=== PATIENT | female | born 1945 | race Caucasian/White ===

== ENCOUNTER 2020-07-02 09:16 | Outpatient (REF) | payer MEDICARE, SELFPAY ==
[2020-07-02 11:02] LABS: MANUAL DIFF FLAG NO
[2020-07-02 11:19] LABS: Basophils Percent Auto 0.3 % (0-2); Eosinophils Absolute Auto 0.1 X10*3/uL (0.0-0.4); Eosinophils Percent Auto 0.8 % (0-4); Hematocrit 39.9 % (37-47); Imm Gran Abs Auto 0.04 X10*3/uL (0.00-0.03); Imm Gran Pct Auto 0.6 % (0.0-0.4); Lymphocytes Absolute Auto 2.2 X10*3/uL (1.2-4.9); Lymphocytes Percent Auto 35.7 % (20-40); Mean Corpuscular HGB Conc 32.6 g/dl (31.0-35.0); Mean Corpuscular Hemoglobin 31.8 pg (27.0-33.0); Mean Corpuscular Volume 97.6 fL (80-98); Mean Platelet Volume 9.6 fL (9.4-12.3); Monocytes Absolute Auto 0.5 X10*3/uL (0.1-1.2); Monocytes Percent Auto 7.9 % (2-11); Neutrophils Absolute Auto 3.4 X10*3/uL (2.0-8.3); Neutrophils Percent Auto 54.7 % (45-73); Platelet Count 224 X10*3/uL (160-400); Red Blood Count 4.09 X10*6/uL (4.20-5.50); Red Cell Distribution Width 13.2 % (11.0-16.0); White Blood Count 6.2 X10*3/uL (4.8-10.8)
[2020-07-02 11:48] LABS: Anion Gap 13 (12-20); Blood Urea Nitrogen 14 mg/dL (9-16); Calcium 8.8 mg/dL (8.4-10.2); Carbon Dioxide 29 mmol/L (22-29); Chloride 103 mmol/L (96-108); Cholesterol 203 mg/dL; Estimated Glomerular Filt Rate > 60; Glucose Fasting 95 mg/dL (60-99); HDL Cholesterol 57 mg/dL; LDL Cholesterol Calculated 132 mg/dl; Potassium 4.2 mmol/l (3.3-5.1); Sodium 141 mmol/L (135-145); Triglycerides 71 mg/dL
[2020-07-02 11:57] LABS: TSH reflex Free T4 1.12 mIU/mL (0.32-4.0); Vitamin D 25-OH Total 22.1 ng/mL (>30)
== END 2020-07-02 09:17 | disposition home or self-care (01) ==
LOC: HO.HMGCLDS 09:16
PROVIDERS: PCP Internal Medicine; Visit Provider Internal Medicine
DX: M81.0 Age-related osteoporosis without current pathological fracture (principal); R51.9 Headache, unspecified; Z78.0 Asymptomatic menopausal state; I10 Essential (primary) hypertension
CPT/HCPCS: 36415; 80048; 80061; 82306; 84443; 85025

== ENCOUNTER 2020-12-13 08:03 | Outpatient (REF) | payer MEDICARE, SELFPAY ==
[2020-12-13 11:49] LABS: Glucose Urine UA NEG (NEG); Leukocyte Esterase Urine 2+ (NEG); Nitrite Urine POS (NEG); Specific Gravity - Urine 1.025 (1.005-1.025); UACC Culture Trigger YES; Urine Blood TRACE (NEG); Urine Ketones NEG (NEG); Urine Protein NEG (NEG-TRACE)
[2020-12-13 11:56] LABS: Appearance Urine CLOUDY; Color Urine YELLOW
[2020-12-13 12:37] LABS: Bacteria Urine 2+ /LPF; RBC Urine 0-2 /HPF (0); Squamous Epithelial Cell Urine 2+ /LPF
== END 2020-12-13 08:04 | disposition home or self-care (01) ==
LOC: HO.HMGCLDS 08:03
PROVIDERS: PCP Internal Medicine; Visit Provider Internal Medicine
DX: R35.0 Frequency of micturition (principal)
CPT/HCPCS: 81001; 81003; 87086

== ENCOUNTER 2021-06-19 07:10 | Outpatient (REF) | payer MEDICARE, SELFPAY ==
[2021-06-19 11:37] LABS: MANUAL DIFF FLAG NO
[2021-06-19 11:51] LABS: Basophils Percent Auto 0.6 % (0-2); Eosinophils Absolute Auto 0.1 X10*3/uL (0.0-0.4); Eosinophils Percent Auto 1.8 % (0-4); Hematocrit 41.2 % (37-47); Hemoglobin 13.5 g/dl (12.0-16.0); Imm Gran Abs Auto 0.04 X10*3/uL (0.00-0.03); Imm Gran Pct Auto 0.7 % (0.0-0.4); Lymphocytes Absolute Auto 1.8 X10*3/uL (1.2-4.9); Lymphocytes Percent Auto 32.7 % (20-40); Mean Corpuscular HGB Conc 32.8 g/dl (31.0-35.0); Mean Corpuscular Hemoglobin 31.4 pg (27.0-33.0); Mean Corpuscular Volume 95.8 fL (80-98); Mean Platelet Volume 9.8 fL (9.4-12.3); Monocytes Absolute Auto 0.4 X10*3/uL (0.1-1.2); Monocytes Percent Auto 8.1 % (2-11); Neutrophils Absolute Auto 3.1 X10*3/uL (2.0-8.3); Neutrophils Percent Auto 56.1 % (45-73); Platelet Count 229 X10*3/uL (160-400); Red Cell Distribution Width 13.2 % (11.0-16.0); White Blood Count 5.4 X10*3/uL (4.8-10.8)
[2021-06-19 11:55] LABS: Alanine Aminotransferase 14 U/L (0-31); Albumin Level 4.4 g/dL (3.5-5.0); Alkaline Phosphatase 98 U/L (39-117); Anion Gap 12 (12-20); Aspartate Amino Transferase 19 U/L (5-31); Bilirubin Total 1.1 mg/dL (0.0-1.0); Blood Urea Nitrogen 12 mg/dL (9-16); Calcium 9.8 mg/dL (8.4-10.2); Carbon Dioxide 28 mmol/L (22-29); Chloride 105 mmol/L (96-108); Cholesterol 222 mg/dL; Estimated Glomerular Filt Rate > 60; Glucose Fasting 94 mg/dL (60-99); HDL Cholesterol 60 mg/dL; LDL Cholesterol Calculated 145 mg/dl; Potassium 4.2 mmol/L (3.3-5.1); Sodium 141 mmol/L (135-145); Total Protein 7.6 g/dL (6.5-8.0); Triglycerides 87 mg/dL
[2021-06-19 12:18] LABS: TSH reflex Free T4 1.63 uIU/mL (0.32-4.0); Vitamin D 25-OH Total 31.6 ng/mL (>30)
[2021-06-19 12:35] LABS: Folate 14.5 ng/mL (> or = 4.0); Vitamin B12 269 pg/mL (200-900)
== END 2021-06-19 07:11 | disposition home or self-care (01) ==
LOC: HO.HMGCLDS 07:10
PROVIDERS: PCP Internal Medicine; Visit Provider Internal Medicine
DX: E55.9 Vitamin D deficiency, unspecified (principal); R51.9 Headache, unspecified
CPT/HCPCS: 36415; 80053; 80061; 82306; 82607; 82746; 84443; 85025

== ENCOUNTER 2021-10-10 07:28 | Outpatient (REF) | payer MEDICARE, SELFPAY ==
[2021-10-10 11:56] LABS: Vitamin D 25-OH Total 26.5 ng/mL (>30)
[2021-10-10 12:01] LABS: Alanine Aminotransferase 15 U/L (0-31); Anion Gap 10 (12-20); Aspartate Amino Transferase 21 U/L (5-31); Blood Urea Nitrogen 14 mg/dL (9-16); Calcium 9.7 mg/dL (8.4-10.2); Carbon Dioxide 29 mmol/L (22-29); Chloride 105 mmol/L (96-108); Cholesterol 209 mg/dL; Estimated Glomerular Filt Rate > 60; Glucose Fasting 98 mg/dL (60-99); HDL Cholesterol 53 mg/dL; LDL Cholesterol Calculated 134 mg/dl; Potassium 4.4 mmol/L (3.3-5.1); Sodium 140 mmol/L (135-145); Triglycerides 111 mg/dL
== END 2021-10-10 07:29 | disposition home or self-care (01) ==
LOC: HO.HMGCLDS 07:28
PROVIDERS: Visit Provider Internal Medicine
DX: Z00.01 Encounter for general adult medical examination with abnormal findings (principal); M81.0 Age-related osteoporosis without current pathological fracture; E78.5 Hyperlipidemia, unspecified; Z78.0 Asymptomatic menopausal state
CPT/HCPCS: 36415; 80048; 80061; 82306; 84450; 84460

== ENCOUNTER 2022-01-22 08:02 | Outpatient (REF) | payer MEDICARE, SELFPAY ==
--- NOTE | ~2022-01-22 | MM_ITS ---
EXAMINATION: BONE DENSITOMETRY CLINICAL INDICATION: Age-related osteoporosis without current pathological fracture. COMPARISON: Previous BD dated 09/12/2016 and baseline BD dated 01/21/2007. TECHNIQUE: Using a [employer]ure[employer]x DXA System (software version: 13.1) manufactured by [employer], dual-energy x-ray absorptiometry was performed of the lumbar spine and left hip. The images are of good technical quality. Summary results are attached. FINDINGS: AP SPINE L1-L2 (excluding L3 and L4): The data of L1-L4 has been changed to exclude the L3 and L4 vertebral bodies, because degenerative changes at these levels may cause overestimation of lumbar spine density. Current: BMD 0.987 g/cm2, Z-score -0.1, T-score -1.5, osteopenia, 0.1% decrease from previous, 0.7% decrease from baseline (<5% change is not significant). Prior: BMD 0.988 g/cm2. Baseline: BMD 0.994 g/cm2. LEFT FEMUR, NECK: Current: BMD 0.621 g/cm2, Z-score -1.2, T-score -3.0, osteoporosis. Prior: BMD 0.650 g/cm2. Baseline: BMD 0.692 g/cm2. LEFT FEMUR, TOTAL: Current: BMD 0.686 g/cm2, Z-score -0.9, T-score -2.6, osteoporosis, 11.5% decrease from previous, 10.9% decrease from baseline (<5% change is not significant). Prior: BMD 0.775 g/cm2. Baseline: BMD 0.770 g/cm2. IDENTIFIED RISK FACTORS: Height loss, menopause. HISTORY OF FRACTURE: None listed. MEDICATIONS: Vitamin D. MM/XR DEXA axial skeleton IMPRESSION: 1. DIAGNOSIS: Osteoporosis based on the lowest T-score value of -3.0 in the femoral neck applying World Health Organization criteria. 2. 10-YEAR FRACTURE RISK PREDICTION, FRAX: According to the guidelines, FRAX calculation should only be performed on patients in the osteopenia bone density category. Therefore, FRAX was not performed on this patient. 3. Treatment Recommendations: NOF guidelines recommend consideration for treatment in postmenopausal women and men age 50 and older presenting with the following: -A hip or vertebral (clinical or morphometric) fracture. -T-score less than or equal to -2.5 at the femoral neck or spine after appropriate evaluation to exclude secondary causes. -Low bone mass at the hip or spine and a 10-year fracture probability by FRAX of greater than or equal to 3% for hip fracture or greater than or equal to 20% for major osteoporotic fracture based on the [place] adapted WHO algorithm. 4. Other Recommendations: All treatment decisions require clinical judgment and consideration of individual patient factors, including patient preferences, comorbidities, previous drug use, risk factors not captured in the FRAX model (e.g. frailty, falls, vitamin D deficiency, increased bone turnover, interval significant decline in bone density) and possible under or overestimation of fracture risk by FRAX. Additional medical evaluation for secondary cause of low bone mineral density may be appropriate. FUTURE SCAN RECOMMENDATION: People with diagnosed cases of osteoporosis or at high risk for fracture should have regular bone mineral density tests. For patients eligible for Medicare, routine testing is allowed once every 2 years. The testing frequency can be increased to one year for patients who have rapidly progressing disease, those who are receiving or discontinuing medical therapy to restore bone mass, or have additional risk factors.
--- NOTE | ~2022-01-22 | MM_ITS ---
EXAMINATION: MM SCREENING DIGITAL BREAST TOMOSYNTHESIS, BILATERAL CLINICAL INFORMATION: Screening. Asymptomatic. The lifetime risk of breast cancer based on the Tyrer-Cuzick Model is under 2%. COMPARISON: Mammography: 07/29/2018, 07/11/2017, 06/21/2016 TECHNIQUE: Digital breast tomosynthesis is performed in both the craniocaudal and mediolateral oblique views along with computer-aided detection (CAD). Synthesized 2D images are generated from the tomosynthesis. FINDINGS: There are scattered areas of fibroglandular density (ACR BI-RADS breast composition Category b). Breast tissue composition borders on heterogeneously dense in the anterior breasts. Parenchymal pattern is similar to prior studies. There is chronic mild nipple retraction. There is no developing density or interval mass or architectural abnormality. There are increased bilateral predominantly ductal secretory calcifications. No suspicious calcifications. The axilla are unremarkable. MM/MM tomosynthesis screening BI IMPRESSION: No significant changes from prior studies. ASSESSMENT: BI-RADS 2: Benign RECOMMENDATION: Routine annual mammography screening. This patient's information was entered into a reminder system with a target due date for their next mammogram.
== END 2022-01-22 08:03 | disposition home or self-care (01) ==
LOC: HO.MAMMO 08:02
PROVIDERS: PCP Internal Medicine; Visit Provider Internal Medicine
DX: Z12.31 Encounter for screening mammogram for malignant neoplasm of breast (principal); Z13.820 Encounter for screening for osteoporosis; Z78.0 Asymptomatic menopausal state; M81.0 Age-related osteoporosis without current pathological fracture
CPT/HCPCS: 77063; 77067; 77080

== ENCOUNTER 2022-10-15 08:34 | Outpatient (REF) | payer MEDICARE, SELFPAY ==
[2022-10-15 12:23] LABS: Alanine Aminotransferase 25 U/L (0-31); Anion Gap 10 (12-20); Aspartate Amino Transferase 23 U/L (5-31); Blood Urea Nitrogen 10 mg/dL (9-16); Calcium 9.5 mg/dL (8.4-10.2); Carbon Dioxide 29 mmol/L (22-29); Chloride 106 mmol/L (96-108); Cholesterol 223 mg/dL; Estimated Glomerular Filt Rate > 60; Glucose Fasting 101 mg/dL (60-99); HDL Cholesterol 54 mg/dL; LDL Cholesterol Calculated 150 mg/dl; Sodium 141 mmol/L (135-145); Triglycerides 97 mg/dL; Vitamin D 25-OH Total 31.6 ng/mL (>30)
== END 2022-10-15 08:35 | disposition home or self-care (01) ==
LOC: HO.HMGCLDS 08:34
PROVIDERS: Visit Provider Internal Medicine
DX: Z00.01 Encounter for general adult medical examination with abnormal findings (principal); E55.9 Vitamin D deficiency, unspecified; M81.0 Age-related osteoporosis without current pathological fracture; Z78.0 Asymptomatic menopausal state
CPT/HCPCS: 36415; 80048; 80061; 82306; 84450; 84460

== ENCOUNTER 2025-03-17 09:44 | Outpatient (AMB) | payer MEDICARE, SELFPAY ==
--- NOTE | 2025-03-17 10:27 | AM.OFFWIN_ITS ---
Intake Vital Signs 03/17/25 10:28 Height 5 ft 2 in Weight 147 lb BMI 26.9 BP 126/64 Blood Pressure Location Lt brachial Position Sitting Pulse 94 Pulse Source Pulse Oximeter Temp 97.7 F Temp Source Oral Pulse Oximetry (%) 97 Oxygen Delivery Method Room Air Intake Visit Reasons: EP-arms and legs itchy from a bite Intake Note: pt presents with itchy arms/legs after napping on outdoor swing about a week ago Patient Tobacco Use Status: Former Tobacco user Allergies cat dander Allergy (Verified 03/17/25 10:28) sneezing runny nose dog dander Allergy (Verified 03/17/25 10:28) sneezing runny nose mold Allergy (Verified 03/17/25 10:28) sneezing runny nose Do you need a note to return to daycare/school/sports/work: No HPI EP-arms and legs itchy from a bite HPI Details This is an 79-year-old female patient who presents to the walk-in clinic today with a rash on her anterior upper thighs and right arm. This has been present for about a week, and developed following patient taking a nap outside during the day. She thinks something might have bitten her. She says that she developed red bumps, that later became fluid-filled. These areas have since drained/popped, however rash remains pink/red and mildly itchy, with some residual scabbing. She has been putting on topical antibiotic ointment, and taking Benadryl as needed. She states that her daughter encouraged her to come in to have this evaluated. [facility] Medical History Annual visit for general adult medical examination with abnormal findings Dyslipidemia Allergic rhinitis Vitamin D deficiency Menopause Headache Hx of carpal tunnel syndrome Macular degeneration of both eyes History of shingles Osteoarthritis cervical spine Osteoporosis Surgical History History of hernia repair Hx of cholecystectomy Carpal tunnel syndrome History of partial hysterectomy Family History Father CVD (cardiovascular disease) Myocardial infarction Mother Unknown family medical history Brother No problems noted. Sister No problems noted. Sister No problems noted. Sister No problems noted. Sister No problems noted. Daughter No problems noted. Daughter No problems noted. Daughter No problems noted. Social History Housing: House Alcohol intake: never Patient Tobacco Use Status: Former Tobacco user e-Cigarette/Vaping Use: Never Used service: No Current occupational status: retired Cognitive needs: No Hearing needs: No Vision needs: Yes Review of Systems Const All systems reviewed & are unremarkable except as noted in HPI and below Physical Exam Vital Signs: Last Vital Signs Temp 97.7 F 03/17/25 10:28 Pulse 94 03/17/25 10:28 BP 126/64 03/17/25 10:28 Pulse Ox 97 03/17/25 10:28 Oxygen Delivery Method Room Air 03/17/25 10:28 BMI result Body Mass Index 26.9 Const General: cooperative, healthy appearing, comfortable and no acute distress HEENT Head: Yes normal to inspection Neck Neck: Yes no lymphadenopathy Resp Effort & Inspection: normal respiratory effort Auscultation: clear to auscultation bilaterally Cardio Rate: regular rate Rhythm: regular rhythm Skin Other: erythematous rash bilateral upper anterior thighs and right dorsal wrist. There are areas that appear to have had blisters which have drained/popped. There are several scabbed areas on thighs and on wrist. There is mild surrounding erythema and warmth. No active drainage. No drainable lesions. Extrem General: Yes no clubbing, cyanosis or edema Psych Appearance: grossly normal Mental Status: mental status grossly normal Speech and movement: Normal speech and movement present Assessment & Plan Assessment & Plan (1) Cellulitis: Code(s): L03.90 - Cellulitis, unspecified Qualifiers: Site of cellulitis: extremity Site of cellulitis of extremity: lower extremity Laterality: unspecified laterality Qualified Code(s): L03.119 - Cellulitis of unspecified part of limb Plan: Will start Keflex for cellulitis - TID (patient does not feel she will be compliant with anything more frequent than this) - Rash likely started as a contact derm from plant or insect bite(s). Patient can continue to use topical abx cream and Benadryl as needed. Advised to keep areas clean/dry, or into return to the clinic if she develops any worsening symptoms/rash, or fevers. Patient verbalizes understanding and agrees to planned Medications: New cephalexin 500 mg PO TID 21 caps 0RF 7 days L03.119 - Cellulitis of unspecified part of limb Coding Level of Care Code Est Pt Level 4 (04636) Diagnoses Cellulitis of lower extremity, unspecified laterality L03.119 Site of cellulitis: extremity Site of cellulitis of extremity: lower extremity Laterality: unspecified laterality
[2025-03-17 10:28] VITALS: BP 126/64; PULSE 94; TEMP 36.5; O2SAT 97; BMI 26.9
== END 2025-03-17 10:58 | disposition home or self-care (01) ==
PROVIDERS: PCP Internal Medicine; Visit Provider Nurse Practitioner Family
DX: L03.119 Cellulitis of unspecified part of limb (principal)

== ENCOUNTER → 2025-03-17 09:44 | Outpatient (BNVA) | payer MEDICARE, SELFPAY | PROVIDERS: PCP Internal Medicine | DX: L03.119 Cellulitis of unspecified part of limb (principal) | CPT/HCPCS: 99212 ==

== ENCOUNTER 2025-03-20 07:12 | Outpatient (AMB) | payer MEDICARE, SELFPAY ==
[2025-03-20 07:20] VITALS: BP 128/64; PULSE 97; TEMP 36.4; O2SAT 97; BMI 26.9
--- NOTE | 2025-03-20 07:20 | MHC.OFFWIV ---
Intake Vital Signs 03/20/25 07:20 Height 5 ft 2 in Weight 147 lb BMI 26.9 BP 128/64 Blood Pressure Location Lt brachial Position Sitting Pulse 97 Pulse Source Pulse Oximeter Temp 97.5 F Temp Source Oral Pulse Oximetry (%) 97 Oxygen Delivery Method Room Air Intake Visit Reasons: EP ?infected wound on RT arm Intake Note: presents with unhealed wounds on right arm and both legs, still very itchy Patient Tobacco Use Status: Former Tobacco user Allergies cat dander Allergy (Verified 03/20/25 07:27) sneezing runny nose dog dander Allergy (Verified 03/17/25 10:28) sneezing runny nose mold Allergy (Verified 03/17/25 10:28) sneezing runny nose Do you need a note to return to daycare/school/sports/work: No HPI HPI Comments History of Present Illness Details History - The patient is an 79-year-old female presenting for follow up for cellulitis. - She was seen here last week for blisters on her legs and arm on the right. - The lesions began after the patient slept outside on a swing and noticed blisters on both legs upon waking. - The patient suspects insect bites or contact with a plant as potential causes. - The lesions have progressed to scabs and crusting, with no signs of active infection such as warmth or pus. - The patient was prescribed oral antibiotics but experienced gastrointestinal discomfort, leading to inconsistent adherence. - She is supposed to be taking Keflex 3 times a day but she has been taking it twice due to upset stomach. - The patient has been advised to apply a topical antibiotic ointment twice daily. - She is concerned because the areas look ugly . - She has no fever or chills. She denies joint pain. Physical Exam General: Cooperative, healthy appearing, comfortable, no acute distress and well developed Orientation: Patient oriented x3 Limitations: No limitations Respiratory: Normal respiratory effort and able to speak in complete sentences. Clear to auscultation bilaterally. No w/r/r noted. Cardiovascular: RRR, no m/r/g noted. Normal S1 and S2 Skin: Dark, crusted hard scab noted on the right forearm, right and left upper thighs. No warmth or induration noted. No streaking noted. No discharge or bleeding noted. Patient was informed and verbally consented to the use of an ambient scribe for clinic note documentation during this visit [facility] Medical History Annual visit for general adult medical examination with abnormal findings Dyslipidemia Allergic rhinitis Vitamin D deficiency Menopause Headache Hx of carpal tunnel syndrome Macular degeneration of both eyes History of shingles Osteoarthritis cervical spine Osteoporosis Surgical History History of hernia repair Hx of cholecystectomy Carpal tunnel syndrome History of partial hysterectomy Family History Father CVD (cardiovascular disease) Myocardial infarction Mother Unknown family medical history Brother No problems noted. Sister No problems noted. Sister No problems noted. Sister No problems noted. Sister No problems noted. Daughter No problems noted. Daughter No problems noted. Daughter No problems noted. Social History Housing: House Alcohol intake: never Patient Tobacco Use Status: Former Tobacco user e-Cigarette/Vaping Use: Never Used service: No Current occupational status: retired Cognitive needs: No Hearing needs: No Vision needs: Yes Review of Systems Const All systems reviewed & are unremarkable except as noted in HPI and below Physical Exam Vital Signs: Last Vital Signs Temp 97.5 F 03/20/25 07:20 Pulse 97 03/20/25 07:20 BP 128/64 03/20/25 07:20 Pulse Ox 97 03/20/25 07:20 Oxygen Delivery Method Room Air 03/20/25 07:20 BMI result Body Mass Index 26.9 Assessment & Plan Assessment & Plan (1) Cellulitis: Code(s): L03.90 - Cellulitis, unspecified Qualifiers: Laterality: right Site of cellulitis: extremity Site of cellulitis of extremity: upper extremity Qualified Code(s): L03.113 - Cellulitis of right upper limb Plan Most likely contact dermatitis vs insect bites vs allergic reaction vs poison franck and now a cellulitis Plan 1. Contact Dermatitis - keep area clean and dry - finish Keflex as prescribed - Will add Bactrim BID for 7 days - Prescribed a topical antibiotic ointment to be applied twice daily to affected areas. - Advised follow-up in one week to assess healing progress. Medications: New sulfamethoxazole-trimethoprim 800-160 mg (Bactrim DS) 1 tab PO q12h 14 tabs 0RF 7 days mupirocin 2% 1 appl topical tid 22 grams 1RF 7 days Coding Level of Care Code Est Pt Level 3 (50852) Diagnoses Cellulitis of right upper extremity L03.113 Laterality: right Site of cellulitis: extremity Site of cellulitis of extremity: upper extremity
== END 2025-03-20 08:37 | disposition home or self-care (01) ==
PROVIDERS: PCP Internal Medicine; Visit Provider Physician Assistant Medical
DX: L03.113 Cellulitis of right upper limb (principal)

== ENCOUNTER → 2025-03-20 07:12 | Outpatient (BNVA) | payer MEDICARE, SELFPAY | PROVIDERS: PCP Internal Medicine; Visit Provider Physician Assistant Medical | DX: L03.113 Cellulitis of right upper limb (principal); S80.822D Blister (nonthermal), left lower leg, subsequent encounter; S80.821D Blister (nonthermal), right lower leg, subsequent encounter; S40.821D Blister (nonthermal) of right upper arm, subsequent encounter; X58.XXXD Exposure to other specified factors, subsequent encounter | CPT/HCPCS: 99212 ==

== ENCOUNTER 2025-03-27 07:06 | Outpatient (AMB) | payer MEDICARE, SELFPAY ==
[2025-03-27 07:15] VITALS: BP 122/64; PULSE 88; TEMP 36.7; O2SAT 96; BMI 26.9
--- NOTE | 2025-03-27 07:15 | AM.OFFWIN_ITS ---
Intake Vital Signs 3 03/27/25 07:15 Height 5 ft 2 in Weight 147 lb BMI 26.9 BP 122/64 Blood Pressure Location Lt brachial Position Sitting Pulse 88 Pulse Source Pulse Oximeter Temp 98.0 F Temp Source Oral Pulse Oximetry (%) 96 Oxygen Delivery Method Room Air Intake Visit Reasons: EP Wound re-check Intake Note: pt is here for a wound check Patient Tobacco Use Status: Former Tobacco user Allergies cat dander Allergy (Verified 03/27/25 07:19) sneezing runny nose dog dander Allergy (Verified 03/27/25 07:19) sneezing runny nose mold Allergy (Verified 03/27/25 07:19) sneezing runny nose Do you need a note to return to daycare/school/sports/work: No HPI HPI Comments 2 History of Present Illness0 Details History - The patient is an 79-year-old female p resenting with sunburn and blistering wounds on the legs. - The sunburn occurred while the patient was outside during the daytime, fell asleep on a hammock, got sunburned... leading to blister formation the following day. - The patient reports itching of the aff ected area but denies any pain or fever. - The patient was previously prescribed Keflex on 03/17 and Bactrim on 03/20, and mupirocin ointment was recommended for topical application. - The patient has been using mupirocin o intment but requires a refill as the tube is empty. Physical Exam General: Cooperative, healthy appearing, comfortable, no acute distress and well developed Orientation: Patient oriented x3 Limitations: No limitations Head: Normal to inspection Ears: Hearing grossly normal bilaterally Nose: Normal External nose present Face and sinus: Normal facial exam Mouth: normal, moist oral mucosa Eyes: Appearance normal, both eyes and all related structures Neck: Normal visual inspection and Yes full ROM Respiratory: Normal respiratory effort and able to speak in complete sentences. Skin: see below, no warmth or drainage noted Neuro: Patient oriented x3 Extremities: Moving all extremities normally, wounds on upper thighs bilateral and right dorsal wrist, bilateral bullae just above bilateral knees, no drainage, bullae intact, no surrounding erythema or warmth (not pictured) [facility] Medical History Annual visit for general adult medical examination with abnormal findings Dyslipidemia Allergic rhinitis Vitamin D deficiency Menopause Headache Hx of carpal tunnel syndrome Macular degeneration of both eyes History of shingles Osteoarthritis cervical spine Osteoporosis Surgical History History of hernia repair Hx of cholecystectomy Carpal tunnel syndrome History of partial hysterectomy Family History Father CVD (cardiovascular disease) Myocardial infarction Mother Unknown family medical history Brother No problems noted. Sister No problems noted. Sister No problems noted. Sister No problems noted. Sister No problems noted. Daughter No problems noted. Daughter No problems noted. Daughter No problems noted. Social History Housing: House Alcohol intake: never Patient Tobacco Use Status: Former Tobacco user e-Cigarette/Vaping Use: Never Used service: No Current occupational status: retired Cognitive needs: No Hearing needs: No Vision needs: Yes Review of Systems Const All systems reviewed & are unremarkable except as noted in HPI and below Physical Exam Vital Signs: Last Vital Signs Temp 98.0 F 03/27/25 07:15 Pulse 88 03/27/25 07:15 BP 122/64 03/27/25 07:15 Pulse Ox 96 03/27/25 07:15 Oxygen Delivery Method Room Air 03/27/25 07:15 BMI result Body Mass Index 26.9 Assessment & Plan Assessment & Plan (1) Sunburn, third degree: Code(s): L55.2 - Sunburn of third degree Plan: Plan Patient was informed and verbally consented to the use of an ambient scribe for clinic note documentation during this visit - likely 2/2 sunburn, no evidence of infection, appears to be healing well, keep clean and dry. - Continue application of mupirocin ointment to affected areas to prevent infection. - Refill mupirocin ointment prescription to ensure continuous treatment. - Advise keeping the affected area clean and dry, using soap and water for cleansing. - Monitor for any signs of infection or worsening of symptoms, and follow up if necessary. Medications: New 2 mupirocin 2% 1 appl topical TID 22 grams 1RF Coding Level of Care Code Est Pt Level 3 (63860) Diagnoses Sunburn, third degree L55.2
== END 2025-03-27 07:58 | disposition home or self-care (01) ==
PROVIDERS: PCP Internal Medicine; Visit Provider Physician Assistant
DX: L55.2 Sunburn of third degree (principal)

== ENCOUNTER → 2025-03-27 07:06 | Outpatient (BNVA) | payer MEDICARE, SELFPAY | PROVIDERS: PCP Internal Medicine; Visit Provider Physician Assistant | DX: L55.2 Sunburn of third degree (principal) | CPT/HCPCS: 99212 ==